=== PATIENT | female | born 1945 | race Caucasian/White ===

== ENCOUNTER 2017-05-21 11:25 | Inpatient (IN) | payer OTHER ==
[~2017-05-21] VITALS: Ht 167.6 cm; Wt 46.0 kg
[~2017-05-21 11:25] MED LIST: ALBU0.084; PROAIR HFA 90 MCG INHALER
[2017-05-21] MEDS ORDERED: SODIUM CHLORIDE 0.9% 1,000 ML IV ONE (11:33)
[2017-05-21] MEDS ORDERED: methylPREDNISolone SOD SUCC 125 MG/2 ML VL IV ONE (11:45)
[2017-05-21] MEDS ORDERED: LEVOFLOXACIN 500MG 100 ML IV ONE (11:45)
[2017-05-21] MEDS ORDERED: IPRATROPIUM BROM 0.5 MG/2.5ML INH SOL HHN ONE (11:45)
[2017-05-21] MEDS ORDERED: ALBUTEROL SULF 2.5 MG/0.5ML(0.5%) NEB SOLN HHN ONE (11:45)
[2017-05-21 12:05] LABS: Basophils # (auto) 0.1 uL; Basophils % (auto) 0.2 % (0.0-2.0); CONDITION Y; Eosinophils # (auto) 0.2 uL; Eosinophils % (auto) 0.8 % (0.0-7.0); Hematocrit 47.8 % (36.0-46.0); Hemoglobin 15.7 g/dL (12.2-16.2); Lymphocytes # (auto) 2.4 uL; Lymphocytes % (auto) 9.5 % (10.0-50.0); Mean Corpuscular Hemoglobin 30.6 pg (28.0-32.0); Mean Corpuscular Hgb Conc. 32.9 g/dL (32.0-36.0); Mean Corpuscular Volume 93.1 fL (80.0-100.0); Mean Platelet Volume 8.8 fL (7.4-10.4); Monocytes % (auto) 4.1 % (0.0-12.0); Neutrophils # (auto) 21.9 uL; Neutrophils % (auto) 85.4 % (37.0-80.0); Platelet Count (auto) 315 10^3/uL (140-450); Red Cell Distribution Width 14.6 % (11.6-16.0); SUSPECT SEE PRINTOUT; White Blood Cell 25.7 10^3/uL (4.4-10.8)
[2017-05-21 12:34] LABS: Lactic Acid w/Reflex 2.8 mmol/L (0.4-2.0)
[2017-05-21 12:37] LABS: Albumin 3.7 g/dL (3.4-5.0); BUN/Creatinine Ratio 21.6; Bilirubin, Total 0.5 mg/dL (0.2-1.0); Calcium 9.1 mg/dL (8.5-10.1); Magnesium 2.5 mg/dL (1.6-2.6); Potassium 4.1 mmol/L (3.5-5.1); Total Protein 7.8 g/dL (6.4-8.2)
[2017-05-21 12:45] LABS: REFLEX LACTIC ACID YES OR NO YES
[2017-05-21 12:59] LABS: B-Type Natriuretic Peptide 60.32 pg/mL (0-100); Temperature: 24.3 C (20.0-25.0)
[2017-05-21] MEDS: SODIUM CHLORIDE 0.9% 1,000 ML IV SCH ×2 (14:10→22:52)
[2017-05-21] MEDS ORDERED: ALBUTEROL SULF 2.5 MG/0.5ML(0.5%) NEB SOLN NEB PRN (14:15)
[2017-05-21] MEDS ORDERED: TEMAZEPAM 15 MG CAP PO PRN (14:15)
[2017-05-21] MEDS ORDERED: NITROGLYCERIN 0.4 MG SL TAB SL PRN (14:15)
[2017-05-21] MEDS ORDERED: LACTULOSE 20Gm/30ML SOLN PO PRN (14:15)
[2017-05-21] MEDS ORDERED: PROMETHAZINE HCL 25 MG/ML 1ML IV PRN (14:15)
[2017-05-21] MEDS ORDERED: DEXTROSE (50%) 50ML SYRG IV PRN (14:15)
[2017-05-21] MEDS ORDERED: ACETAMINOPHEN 500 MG TAB PO PRN (14:15)
[2017-05-21] MEDS ORDERED: MORPHINE SULF INJ 2 MG/ML SYRINGE 1ML IV PRN ×2 (14:15)
[2017-05-21] MEDS ORDERED: LORazepam 0.5 MG TAB PO PRN (14:15)
[2017-05-21] MEDS ORDERED: HYDROcodone-ACET 5/325MG TAB PO PRN (14:15)
[2017-05-21] MEDS ORDERED: PANTOPRAZOLE 40 MG TAB PO ONE (14:30)
[2017-05-21] MEDS ORDERED: ENOXAPARIN SOD 40 MG/0.4 ML SYRINGE SC ONE (14:30)
[2017-05-21] MEDS ORDERED: IOHEXOL 350 MG/ML 100ML IJ ONE (15:00)
[2017-05-21] MEDS ORDERED: ENOXAPARIN SOD 60 MG/0.6 ML SYRINGE SC ONE ×2 (15:12→15:30)
[2017-05-21] MEDS: ASPirin 81 mg TAB PO SCH (16:00)
[2017-05-21 16:18] LABS: Allen Test Yes; Base Excess -4.7 mmol/L (-2.0-2.0); Blood 02Sat 83.9 % (96-100); Blood COHb 0.5 % (0.5-1.5); Blood MetHb 0.3 % (0.0-1.5); HCO3 19.2 mmol/L (22-26.0); MODE NASAL CANNULA; O2Hb 83.2 % (94.0-97.0); PCO2 32.7 mmHg (35.0-45.0); PCO2(T) 32.7 mmHg (35.0-45.0); PO2 49.5 mmHg (80.0-100.0); PO2(T) 49.5 mmHg (80.0-100.0); Room 1019-ERT; Sample Type Arterial; pH 7.386 (7.350-7.450)
[2017-05-21 16:38] VITALS: BP 97/65
[2017-05-21 16:58] LABS: Base Excess -8.3 mmol/L (-2.0-2.0); Blood 02Sat 93.3 % (96-100); Blood MetHb 0.4 % (0.0-1.5); HCO3 16.1 mmol/L (22-26.0); HHb 6.6 % (0.0-5.0); MODE MASK - BIPAP; PCO2 31.1 mmHg (35.0-45.0); PCO2(T) 31.1 mmHg (35.0-45.0); PIP 12; Room 1019-ERT; Sample Type Arterial; pH 7.332 (7.350-7.450)
[2017-05-21] MEDS ORDERED: ETOMIDATE (2MG/ML) 20ML VIAL IV ONE ×2 (17:05→17:30)
[2017-05-21] MEDS ORDERED: SUCCINYLCHOLINE CHLORIDE 20 MG/ML 10ML VIAL IV ONE ×2 (17:06→17:30)
[2017-05-21] MEDS: NOREPINEPHRINE BITARTRATE 250 ML IV SCH (17:45)
[2017-05-21] MEDS: MIDAZOLAM DRIP 50 mg/50mL 50 ML IV SCH ×2 (17:45→21:00)
[2017-05-21] MEDS: methylPREDNISolone SOD SUCC 40 MG/ML VL IV SCH ×2 (18:00→23:29)
[2017-05-21] MEDS: ACCU-CHEK COMFORT CURVE STRIP VI SCH (18:00)
[2017-05-21] MEDS: IPRATROPIUM BROM 0.5 MG/2.5ML INH SOL NEB SCH (18:45)
[2017-05-21] MEDS: ALBUTEROL SULF 2.5 MG/0.5ML(0.5%) NEB SOLN NEB SCH (18:45)
[2017-05-21 18:54] LABS: Allen Test Yes; Base Excess -10.9 mmol/L (-2.0-2.0); Blood 02Sat 96.6 % (96-100); Blood COHb 0.8 % (0.5-1.5); Blood MetHb 0.5 % (0.0-1.5); HCO3 15.2 mmol/L (22-26.0); HHb 3.4 % (0.0-5.0); MODE VENT - A/C; O2Hb 95.3 % (94.0-97.0); PCO2 35.1 mmHg (35.0-45.0); PCO2(T) 35.1 mmHg (35.0-45.0); PO2 96.9 mmHg (80.0-100.0); PO2(T) 96.9 mmHg (80.0-100.0); Room 1019-ERT; Sample Type Arterial; pH 7.254 (7.350-7.450)
[2017-05-21 20:25] VITALS: BP 94/64
[2017-05-21] MEDS ORDERED: ATORVASTATIN 20 MG TAB PO SCH (22:00)
[2017-05-21] MEDS ORDERED: CARVEDILOL 3.125 MG TAB PO SCH (22:00)
[2017-05-21 22:40] VITALS: BP 98/72
[2017-05-22] VITALS (84 sets, daily range): BP systolic 71–135; BP diastolic 43–118
[2017-05-22] MEDS: ACCU-CHEK COMFORT CURVE STRIP VI SCH ×4 (00:04→18:13)
[2017-05-22 03:40] LABS: Basophils # (auto) 0 uL; Basophils % (auto) 0.1 % (0.0-2.0); CONDITION Y; Eosinophils # (auto) 0 uL; Eosinophils % (auto) 0.1 % (0.0-7.0); Hematocrit 46.8 % (36.0-46.0); Hemoglobin 15.2 g/dL (12.2-16.2); Lymphocytes # (auto) 1.6 uL; Lymphocytes % (auto) 6.6 % (10.0-50.0); Mean Corpuscular Hemoglobin 30.5 pg (28.0-32.0); Mean Corpuscular Hgb Conc. 32.5 g/dL (32.0-36.0); Mean Corpuscular Volume 93.9 fL (80.0-100.0); Mean Platelet Volume 8.9 fL (7.4-10.4); Neutrophils # (auto) 22.1 uL; Neutrophils % (auto) 89.2 % (37.0-80.0); Platelet Count (auto) 274 10^3/uL (140-450); Red Cell Distribution Width 14.6 % (11.6-16.0); White Blood Cell 24.8 10^3/uL (4.4-10.8)
[2017-05-22] MEDS ORDERED: fentaNYL Drip 2500mCg/250mlNS 250 ML IV ONE (04:16)
[2017-05-22 04:19] LABS: Albumin 3.1 g/dL (3.4-5.0); BUN/Creatinine Ratio 18.4; Bilirubin, Total 0.5 mg/dL (0.2-1.0); Calcium 8.5 mg/dL (8.5-10.1); Potassium 5.1 mmol/L (3.5-5.1); Total Protein 6.8 g/dL (6.4-8.2)
[2017-05-22 04:23] LABS: B-Type Natriuretic Peptide 879.49 pg/mL (0-100)
[2017-05-22 04:28] LABS: Temperature: 23.1 C (20.0-25.0)
[2017-05-22] MEDS: fentaNYL Drip 2500mCg/250mlNS 250 ML IV SCH (04:34)
[2017-05-22] MEDS: methylPREDNISolone SOD SUCC 40 MG/ML VL IV SCH ×3 (05:34→18:13)
[2017-05-22] MEDS: ALBUTEROL SULF 2.5 MG/0.5ML(0.5%) NEB SOLN NEB SCH ×3 (06:14→18:37)
[2017-05-22] MEDS: IPRATROPIUM BROM 0.5 MG/2.5ML INH SOL NEB SCH ×3 (06:14→18:37)
[2017-05-22] MEDS: SODIUM CHLORIDE 0.9% 1,000 ML IV SCH (08:00)
[2017-05-22 09:40] LABS: Allen Test Yes; Base Excess -10.3 mmol/L (-2.0-2.0); Blood COHb 1.2 % (0.5-1.5); Blood MetHb 0.5 % (0.0-1.5); HCO3 16.7 mmol/L (22-26.0); HHb 2.9 % (0.0-5.0); MODE VENT - A/C; O2Hb 95.4 % (94.0-97.0); PCO2 40.9 mmHg (35.0-45.0); PCO2(T) 40.9 mmHg (35.0-45.0); PO2 102.9 mmHg (80.0-100.0); PO2(T) 102.9 mmHg (80.0-100.0); Sample Type Arterial
[2017-05-22] MEDS ORDERED: LEVOFLOXACIN 500MG 100 ML IV SCH (10:00)
[2017-05-22] MEDS ORDERED: PANTOPRAZOLE 40 MG TAB PO SCH (10:00)
[2017-05-22] MEDS ORDERED: ENOXAPARIN SOD 40 MG/0.4 ML SYRINGE SC SCH (10:00)
[2017-05-22] MEDS ORDERED: FUROSEMIDE 40 MG/4 ML VIAL ONE (10:16)
[2017-05-22] MEDS: ASPirin 81 mg TAB PO SCH (10:21)
[2017-05-22] MEDS ORDERED: FUROSEMIDE 40 MG/4 ML VIAL IV ONE (10:30)
[2017-05-22] MEDS: MIDAZOLAM DRIP 50 mg/50mL 50 ML IV SCH (12:42)
[2017-05-22 14:39] LABS: Allen Test Yes; Base Excess -14.5 mmol/L (-2.0-2.0); Blood 02Sat 90.7 % (96-100); Blood COHb 1.2 % (0.5-1.5); Blood MetHb 0.4 % (0.0-1.5); HCO3 13.7 mmol/L (22-26.0); HHb 9.2 % (0.0-5.0); MODE VENT - A/C; O2Hb 89.2 % (94.0-97.0); PCO2 40.2 mmHg (35.0-45.0); PCO2(T) 40.2 mmHg (35.0-45.0); PO2 73.2 mmHg (80.0-100.0); PO2(T) 73.2 mmHg (80.0-100.0); Sample Type Arterial; pH 7.151 (7.350-7.450)
[2017-05-22] MEDS: NOREPINEPHRINE BITARTRATE 250 ML IV SCH ×2 (14:41→21:09)
[2017-05-22] MEDS ORDERED: SODIUM BICARBONATE 8.4 % INJ 50ML VIAL IV ONE (14:45)
[2017-05-22] MEDS ORDERED: SODIUM BICARBONATE 8.4% INJ 50ML SYRINGE ONE ×2 (14:45→21:03)
[2017-05-22 15:37] LABS: INR 1.29 (0.9-1.15); Partial Thromboplastin Time 34.4 sec (22.64-33.71); Prothrombin Time 14.1 sec (9.37-12.3)
[2017-05-22] MEDS ORDERED: SODIUM CHLORIDE 0.9% 500 ML IV ONE (16:00)
[2017-05-22 16:33] LABS: BUN/Creatinine Ratio 19.3; Calcium 7.6 mg/dL (8.5-10.1)
[2017-05-22 16:35] LABS: Potassium 5.9 mmol/L (3.5-5.1)
[2017-05-22 16:53] LABS: Allen Test Yes; Base Excess -9.2 mmol/L (-2.0-2.0); Blood 02Sat 92.3 % (96-100); Blood COHb 1.1 % (0.5-1.5); Blood MetHb 0.4 % (0.0-1.5); HHb 7.6 % (0.0-5.0); MODE VENT - A/C; O2Hb 90.9 % (94.0-97.0); PCO2 38.2 mmHg (35.0-45.0); PCO2(T) 38.2 mmHg (35.0-45.0); PO2 73.9 mmHg (80.0-100.0); PO2(T) 73.9 mmHg (80.0-100.0); Sample Type Arterial; pH 7.267 (7.350-7.450)
[2017-05-22] MEDS ORDERED: Nutren Pulmonary 1 Liter GT SCH (17:45)
[2017-05-22] MEDS ORDERED: Nutren Pulmonary 250ml Bottle PO SCH (18:00)
[2017-05-22] MEDS ORDERED: LIDOCAINE 1% HCL (LOCAL ANESTH.) INJ 20ML MDV ID ONE (18:30)
[2017-05-22] MEDS ORDERED: DEXTROSE 50% SYRINGE 50 ML IV ONE (21:03)
[2017-05-22] MEDS ORDERED: CALCIUM GLUC 4.65meq/50ml D5AE 50 ML IV ONE (21:04)
[2017-05-22] MEDS ORDERED: ATORVASTATIN 20 MG TAB PO SCH (22:00)
[2017-05-22] MEDS: SODIUM CHLOR 0.9% PF (SALINE LOCK) 10ML VIAL IV SCH (22:25)
[2017-05-23] VITALS (32 sets, daily range): BP systolic 59–122; BP diastolic 27–87
[2017-05-23] MEDS: ALBUTEROL SULF 2.5 MG/0.5ML(0.5%) NEB SOLN NEB SCH ×3 (00:11→12:15)
[2017-05-23] MEDS: IPRATROPIUM BROM 0.5 MG/2.5ML INH SOL NEB SCH ×3 (00:12→12:15)
[2017-05-23] MEDS: ACCU-CHEK COMFORT CURVE STRIP VI SCH ×3 (00:20→12:00)
[2017-05-23] MEDS: methylPREDNISolone SOD SUCC 40 MG/ML VL IV SCH ×2 (00:20→05:45)
[2017-05-23 02:29] LABS: CONDITION Y; Hematocrit 44.3 % (36.0-46.0); Hemoglobin 14.3 g/dL (12.2-16.2); Mean Corpuscular Hemoglobin 30.4 pg (28.0-32.0); Mean Corpuscular Hgb Conc. 32.2 g/dL (32.0-36.0); Mean Corpuscular Volume 94.3 fL (80.0-100.0); Mean Platelet Volume 10.1 fL (7.4-10.4); Platelet Count (auto) 185 10^3/uL (140-450); Red Cell Distribution Width 14.2 % (11.6-16.0); SUSPECT SEE PRINTOUT
[2017-05-23] MEDS ORDERED: SODIUM CHLORIDE 0.9% 250 ML IV ONE ×2 (02:30)
[2017-05-23 02:34] LABS: Metamyelocytes % 0; Myelocytes % 0; Promyelocytes % 0; Reactive Lymphocytes 0
[2017-05-23 02:53] LABS: Potassium 5.2 mmol/L (3.5-5.1)
[2017-05-23 03:37] LABS: Platelet Estimate Adequate; RBC Morphology Normal
[2017-05-23] MEDS ORDERED: AMIODARONE HCL 150 MG in D5W 5% 100 ML IV ONE (04:05)
[2017-05-23] MEDS ORDERED: AMIODARONE HCL 900 MG in DEXTROSE 500 ML IV SCH ×4 (04:05)
[2017-05-23] MEDS ORDERED: AMIODARONE HCL (50 MG/ ML) 3 ML VIAL IV ONE (04:07)
[2017-05-23] MEDS ORDERED: AMIODARONE HCL 900 MG IV ONE (04:07)
[2017-05-23] MEDS: fentaNYL Drip 2500mCg/250mlNS 250 ML IV SCH (04:11)
[2017-05-23 05:45] LABS: CONDITION Y; Hematocrit 42.2 % (36.0-46.0); Hemoglobin 13.8 g/dL (12.2-16.2); Mean Corpuscular Hemoglobin 30.8 pg (28.0-32.0); Mean Corpuscular Hgb Conc. 32.7 g/dL (32.0-36.0); Platelet Count (auto) 176 10^3/uL (140-450); Red Cell Distribution Width 14.7 % (11.6-16.0); SUSPECT SEE PRINTOUT; White Blood Cell 27.2 10^3/uL (4.4-10.8)
[2017-05-23] MEDS: SODIUM CHLORIDE 0.9% 1,000 ML IV SCH (05:45)
[2017-05-23 05:50] LABS: Metamyelocytes % 0; Myelocytes % 0; Promyelocytes % 0; Reactive Lymphocytes 0
[2017-05-23 05:50] LABS: Allen Test Modified; Base Excess -13.5 mmol/L (-2.0-2.0); Blood 02Sat 91.5 % (96-100); Blood COHb 1.3 % (0.5-1.5); Blood MetHb 0.4 % (0.0-1.5); HCO3 13.9 mmol/L (22-26.0); HHb 8.4 % (0.0-5.0); MODE VENT - A/C; O2Hb 89.9 % (94.0-97.0); PCO2 37.2 mmHg (35.0-45.0); PCO2(T) 37.2 mmHg (35.0-45.0); PO2 77.5 mmHg (80.0-100.0); PO2(T) 77.5 mmHg (80.0-100.0); Sample Type Arterial; Spont Vt 589
[2017-05-23] MEDS ORDERED: PHENYLEPHRINE IV 250 ML IV ONE ×4 (06:22→12:15)
[2017-05-23] MEDS ORDERED: SODIUM BICARBONATE 8.4% INJ 50ML SYRINGE ONE ×2 (06:22→06:45)
[2017-05-23] MEDS ORDERED: PHENYLEPHRINE INJ 20 MG in SODIUM CHL 0.9% 250 ML IV SCH ×2 (06:28→09:21)
[2017-05-23] MEDS ORDERED: SODIUM BICARBONATE 50ML VIAL 50 ML in D5W 5% 1,000 ML IV SCH (06:30)
[2017-05-23 06:50] LABS: Platelet Estimate Adequate; RBC Morphology Normal
[2017-05-23 07:12] LABS: Potassium 6.1 mmol/L (3.5-5.1)
[2017-05-23 07:13] LABS: BUN/Creatinine Ratio 19.6
[2017-05-23 07:18] LABS: Albumin 2.5 g/dL (3.4-5.0); Bilirubin, Total 0.7 mg/dL (0.2-1.0); Total Protein 5.4 g/dL (6.4-8.2)
[2017-05-23] MEDS ORDERED: DEXTROSE (50%) 50ML SYRG IV ONE ×2 (09:00→09:15)
[2017-05-23] MEDS ORDERED: ALBUTEROL SULF 2.5 MG/0.5ML(0.5%) NEB SOLN NEB ONE (09:00)
[2017-05-23] MEDS ORDERED: InsuLIN REG 1unit/0.01ml Soln (100units/ml) IV ONE ×2 (09:00→09:15)
[2017-05-23] MEDS ORDERED: SODIUM CHLORIDE 0.9% 3,000 ML IV ONE (09:00)
[2017-05-23] MEDS ORDERED: ALBUMIN 25% 100 ML IV SCH (09:00)
[2017-05-23 09:06] LABS: Allen Test Modified; Base Excess -16.9 mmol/L (-2.0-2.0); Blood 02Sat 89.6 % (96-100); Blood COHb 0.6 % (0.5-1.5); Blood MetHb 0.4 % (0.0-1.5); HCO3 11.9 mmol/L (22-26.0); HHb 10.3 % (0.0-5.0); MODE VENT - A/C; O2Hb 88.7 % (94.0-97.0); PCO2 38.5 mmHg (35.0-45.0); PCO2(T) 38.5 mmHg (35.0-45.0); PO2 77.6 mmHg (80.0-100.0); PO2(T) 77.6 mmHg (80.0-100.0); Sample Type Arterial; Spont Vt 460; pH 7.108 (7.350-7.450)
[2017-05-23] MEDS ORDERED: CALCIUM GLUC 4.65meq/50ml D5AE 50 ML IV ONE (09:15)
[2017-05-23] MEDS ORDERED: VASOPRESSIN 50 UNITS in SODIUM CHL 0.9% 247.5 ML IV SCH (09:45)
[2017-05-23] MEDS: SODIUM CHLOR 0.9% PF (SALINE LOCK) 10ML VIAL IV SCH (09:47)
[2017-05-23] MEDS ORDERED: EPINEPHrine HCL 250 ML IV SCH (11:02)
== END 2017-05-23 15:35 | disposition expired | DRG 871 ==
LOC: ER 11:25 → EDBD 11:25 → TELE 11:26 → ICU WEST 05-22 01:50
PROVIDERS: ADMIT Internal Medicine; ATTEND Internal Medicine Pulmonary Disease
PROC: 5A1945Z Respiratory Ventilation, 24-96 Consecutive Hours (ICD-10-PCS; 2017-05-21)
PROC: 5A09357 Assistance with Respiratory Ventilation, Less than 24 Consecutive Hours, Continuous Positive Airway Pressure (ICD-10-PCS; 2017-05-21)
PROC: 0BH17EZ Insertion of Endotracheal Airway into Trachea, Via Natural or Artificial Opening (ICD-10-PCS; 2017-05-21)
PROC: 02HV33Z Insertion of Infusion Device into Superior Vena Cava, Percutaneous Approach (ICD-10-PCS; principal; 2017-05-22)
DX: A41.9 Sepsis, unspecified organism (principal); J96.21 Acute and chronic respiratory failure with hypoxia; N17.0 Acute kidney failure with tubular necrosis; R65.21 Severe sepsis with septic shock; J44.1 Chronic obstructive pulmonary disease with (acute) exacerbation; I50.9 Heart failure, unspecified; W01.0XXA Fall on same level from slipping, tripping and stumbling without subsequent striking against object, initial encounter; E87.5 Hyperkalemia; I11.0 Hypertensive heart disease with heart failure; Z96.641 Presence of right artificial hip joint; E87.6 Hypokalemia; K72.90 Hepatic failure, unspecified without coma; M81.0 Age-related osteoporosis without current pathological fracture; Z66 Do not resuscitate; R91.8 Other nonspecific abnormal finding of lung field; K59.00 Constipation, unspecified; F41.9 Anxiety disorder, unspecified; G47.00 Insomnia, unspecified; R73.9 Hyperglycemia, unspecified; Z87.01 Personal history of pneumonia (recurrent); Z82.5 Family history of asthma and other chronic lower respiratory diseases; Z87.891 Personal history of nicotine dependence; Z99.81 Dependence on supplemental oxygen; Y93.89 Activity, other specified; Y92.89 Other specified places as the place of occurrence of the external cause; Y99.8 Other external cause status; Z79.899 Other long term (current) drug therapy; Z71.3 Dietary counseling and surveillance
CPT/HCPCS: 36415; 36569; 36600; 51702; 71010; 71275; 73080; 73502; 80048; 80051; 80053; 80061; 82550; 82805; 82962; 83036; 83605; 83735; 83880; 84132; 84443; 84484; 85007; 85025; 85027; 85379; 85610; 85652; 85730; 86141; 87040; 87070; 87081; 87086; 87205; 93005; 93306; 94002; 94003; 94640; 94644; 94660; 96365; 96375; 99291; J0171; J0330; J0610; J1815; J1956; J2250; J3010; J3490; J7060